=== PATIENT | male | born 1985 | race Two or more races ===

== ENCOUNTER 2018-06-04 16:05 | Emergency (ER) | payer OTHER ==
[~2018-06-04] VITALS: Ht 152.4 cm; Wt 77.1 kg
[~2018-06-04 16:05] MED LIST: CEPHALEXIN500 MG PO; TRAMADOL HCL-AP1 TAB PO
== END 2018-06-04 18:45 | disposition home or self-care (01) ==
LOC: ER 16:05
DX: B34.9 Viral infection, unspecified (principal)

== ENCOUNTER 2020-12-06 20:22 | Emergency (ER) | payer OTHER ==
[~2020-12-06] VITALS: Ht 175.3 cm; Wt 77.1 kg
== END 2020-12-06 23:43 | disposition home or self-care (01) ==
LOC: ER 20:22
DX: S01.22XA Laceration with foreign body of nose, initial encounter (principal); S10.83XA Contusion of other specified part of neck, initial encounter; W18.09XA Striking against other object with subsequent fall, initial encounter; Y93.I9 Activity, other involving external motion; Y93.89 Activity, other specified; Y92.89 Other specified places as the place of occurrence of the external cause; Y99.8 Other external cause status